=== PATIENT | female | born 1945 | race Caucasian/White ===

== ENCOUNTER 2017-12-11 06:08 | Observation (INO) | payer MEDICARE ==
[~2017-12-11 06:08] MED LIST: Buffered Lidocaine 0.9% SYRIN* 5 ML/SYR SYRINGE INTRADERM ONE; Dexamethasone IV* 4 MG/ML 1 ML (4 MG) IV SLOW PU ONE; Famotidine TAB* 20 MG PO ONE
[2017-12-11] MEDS ORDERED: ceFAZolin 2 GM PREMIX in ORs 2 GM/50 ML BAG IVPB ONE (06:15)
[2017-12-11] MEDS ORDERED: Famotidine IV* 10 MG/ML 2 ML (20 mg) ONE (06:15)
[2017-12-11] MEDS ORDERED: Dexamethasone IV* 4 MG/ML 1 ML (4 MG) ONE (06:15)
[2017-12-11] MEDS ORDERED: Thrombin 5,000 UNITS* 1 APPLIC KIT - topical use - TOPICAL ONE (06:48)
[2017-12-11] MEDS ORDERED: Lidocain 1% EPI 1:100,000 * 30 ML MDV ONE (06:48)
[2017-12-11] MEDS ORDERED: Bacitracin IV* 50,000 UNITS INJ ONE (06:48)
[2017-12-11] MEDS ORDERED: Famotidine TAB* 20 MG ONE (06:52)
[2017-12-11] MEDS ORDERED: Lidocaine 1% INJ* 10 MG/ML 30 ML SDV ONE (07:13)
[2017-12-11] MEDS ORDERED: Succinylcholine* 20 MG/ML 10 ML VIAL ONE (07:13)
[2017-12-11] MEDS ORDERED: Rocuronium* 10 MG/ML VIAL ONE (07:14)
[2017-12-11] MEDS ORDERED: fentaNYL* 50 MCG/ML 2 ML VIAL (100 MCG VIAL) ONE (07:16)
[2017-12-11] MEDS ORDERED: fentaNYL* 50 MCG/ML 2 ML VIAL (100 MCG VIAL) IV PRN (08:38)
[2017-12-11] MEDS ORDERED: Naloxone* 0.4 MG/ML 1 ML VIAL IV PRN (08:38)
[2017-12-11] MEDS ORDERED: Morphine VIAL* 10 MG/ML 1 ML VIAL ONE (10:04)
[2017-12-11] MEDS ORDERED: Acetaminophen TAB* 325 MG ONE (10:50)
[2017-12-11] MEDS: Acetaminophen TAB* 325 MG PO PRN ×2 (10:51→14:54)
[2017-12-11] MEDS: Omeprazole CAP* 20 MG PO SCH (14:53)
[2017-12-11] MEDS: Levothyroxine TAB* 75 MCG TAB PO SCH (14:53)
[2017-12-11] MEDS: Aspirin EC TAB* 81 MG TAB.EC PO SCH (14:53)
[2017-12-11] MEDS: Citalopram TAB* 10 MG PO SCH (14:53)
[2017-12-11] MEDS: Lisinopril TAB* 10 MG PO SCH (14:53)
[2017-12-11] MEDS: CMC:Pravastatin (NF) 20 MG TAB PO SCH (14:56)
[2017-12-11] MEDS ORDERED: Amitriptyline TAB* 25 MG PO SCH (21:00)
[2017-12-12] MEDS: Acetaminophen TAB* 325 MG PO PRN (04:35)
--- NOTE | 2017-12-12 07:40 | PN ---
Progress Note - Progress Note Date of Service: 12/12/17 SOAP: Subjective: [S/p thoracolumbar stimulator removal, POD #1. Reports minimal pain. Has been up out of bed ambulating with assistance of a walker. Denies lower extremity or thoracic pain and tingling. Mild headache improved with tylenol. ] Objective: [ Vital Signs: Temp Pulse Resp BP Pulse Ox 98.9 F 65 16 128/52 99 12/12/17 03:55 12/12/17 03:55 12/12/17 03:55 12/12/17 03:55 12/12/17 03:55 General: Alert and sitting up in chair, NAD. Neuro: Motor and sensory intact. Incision: Intact and dressing in place. No swelling. Assessment: [Satisfactory post-op course. ] Plan: [1. Discharge home. 2. Discharge instructions discussed. ]
[2017-12-12] MEDS ORDERED: Hydrochlorothiazide TAB* 25 MG PO SCH (09:00)
[2017-12-12] MEDS: Aspirin EC TAB* 81 MG TAB.EC PO SCH (09:35)
[2017-12-12] MEDS: Levothyroxine TAB* 75 MCG TAB PO SCH (09:36)
[2017-12-12] MEDS: Lisinopril TAB* 10 MG PO SCH (09:36)
[2017-12-12] MEDS: Omeprazole CAP* 20 MG PO SCH (09:37)
[2017-12-12] MEDS: Citalopram TAB* 10 MG PO SCH (09:37)
[2017-12-12] MEDS: CMC:Pravastatin (NF) 20 MG TAB PO SCH (09:37)
[2017-12-12 15:47] VITALS: BP 117/49
--- NOTE | 2017-12-14 12:36 | OP ---
OPERATIVE REPORT: DATE OF OPERATION: 12/11/17 DATE OF : 41 SURGEON: Antoine William MD HARD CANDY BATCH MIXER: FLAVIO Null. ANESTHESIA: General. PRE-OP DIAGNOSIS: Malfunctioning dorsal column stimulator. POST-OP DIAGNOSIS: Malfunctioning dorsal column stimulator OPERATIVE PROCEDURE: Removal of dorsal column stimulator generator and thoracic epidural paddle. DESCRIPTION OF PROCEDURE: This patient presented to the outpatient clinic though with an implanted d orsal column stimulator that has not enabled her to receive any pain relief. Due to recent shoulder issues, she was advised to consider removal of her stimulator since it was not really helping her and was precluding her from getting an MRI scan. She presented at this time for elective surgical remov al of her dorsal column stimulator. After satisfactory general anesthesia was obtained, the patient was placed on the operating room in prone position with the chest supported on the Alfredo frame and t he back slightly flexed. The right iliac crest region was clipped, prepped and draped in a sterile m serge for removal of her [employer] dorsal column stimulator generator. The mid thoracic vivi on was also clipped, prepped and draped in a sterile manner for removal of her epidural paddle. Both of these incisions were infiltrated with 1% Xylocaine with epinephrine after which the initial step was removal of the generator. The opening was made along her previous scar and the generator immedia tely visualized. The generator was dissected free as were its wires and the leads were cut with the generator removed. The wound was then thoroughly irrigated and antibiotic sponge placed over the poc ket. Attention was then directed to the thoracic region where the most superior of 2 thoracic scars was opened. This was opened down through scar tissue down to the thoracic fascia. The generator wir es and connectors were identified and were traced down to the epidural space. This required some rem oval of thoracic lamina. Once the wires had been traced down to the epidural space, the paddle elect rode was removed without difficulty with all of the connections and wires removed as well. The wound was then thoroughly irrigated after which the fascia was reapproximated with 0-Vicryl suture. The s ubcutaneous tissue was closed with 3-0 Vicryl suture and the skin closed with skin clips. The subcut aneous pocket where the generator band was irrigated and closed the with 3-0 Vicryl for the subcutane ous tissues and anirudh for the skin. The estimated blood loss was less than 50 cc and final sponge, padding, and needle counts were correct. The patient was taken to the recovery room, extubated and in stable condition. [id number]/[facility] #: [id number]
== END 2017-12-12 16:54 | disposition home or self-care (01) ==
LOC: OR 06:08 → SSU 12:46
PROVIDERS: ADMIT Neurological Surgery; ATTEND Neurological Surgery
DX: T85.615A Breakdown (mechanical) of other nervous system device, implant or graft, initial encounter (principal); I10 Essential (primary) hypertension; E78.5 Hyperlipidemia, unspecified; M19.90 Unspecified osteoarthritis, unspecified site; K57.92 Diverticulitis of intestine, part unspecified, without perforation or abscess without bleeding; E07.9 Disorder of thyroid, unspecified; D64.9 Anemia, unspecified; F32.9 Major depressive disorder, single episode, unspecified; F41.9 Anxiety disorder, unspecified; K52.9 Noninfective gastroenteritis and colitis, unspecified; M96.1 Postlaminectomy syndrome, not elsewhere classified
CPT/HCPCS: 88300; 96374; 96375; A9270-GY; G0378; J0330; J0690; J1100; J2270; J3010

== ENCOUNTER 2018-06-12 05:30 | Inpatient (IN) | payer MEDICARE ==
--- NOTE | 2018-05-30 15:18 | HP ---
PREOPERATIVE HISTORY AND PHYSICAL: DATE OF ADMISSION: 06/12/18 DATE OF SURGERY: 06/12/18 ATTENDING PROVIDER: Eric Laguerre MD * (DICTATED BY FLAVIO MONROE) PROCEDURE: Left total shoulder reverse. CHIEF COMPLAINT: Left shoulder pain. HISTORY OF PRESENT ILLNESS: Violette is a 72-year-old female who presents to the clinic after a fall over her left shoulder due to a full-thickness rotator cuff tear. She has failed conservative measures and therefore agreed to undergo a left total shoulder reverse with Dr. Laguerre on 06/12/18. PAST MEDICAL HISTORY: 1. Hypertension. 2. High cholesterol. 3. Osteoarthritis. 4. Colitis. 5. Diverticulitis. 6. Hypothyroidism. 7. Depression. 8. Anxiety. 9. Diabetes that is diet controlled. 10. Obesity. 11. Spinal stenosis. 12. Urinary incontinence. PAST SURGICAL HISTORY: 1. Hysterectomy. 2. Back surgery x4. 3. Spinal cord stimulator and removal. 4. Cholecystectomy. 5. Bowel resection. 6. Hernia x3. 7. Knee replacement. The patient denies prior complications with anesthesia. MEDICATIONS: 1. Benazepril HCl/hydrochlorothiazide 20/25 mg 1 by mouth daily. 2. Levothyroxine 75 mcg 1 daily. 3. Pravastatin 20 mg 1 daily. 4. Venlafaxine 75 mg 1 daily. 5. Vitamin 2 by mouth everyday. 6. Aspirin 81 mg 1 daily. 7. Nexium 20 mg 1 daily. 8. Amitriptyline 25 mg 1 nightly. 9. Fluoxetine 10 mg 2 by mouth everyday. 10. Levothyroxine sodium 75 mcg 1 by mouth daily. ALLERGIES: MORPHINE and DILAUDID. FAMILY HISTORY: Positive for CVA in her father. Denies family history of DVT or PE. SOCIAL HISTORY: She lives with her sister and nephew. She is retired. She is a former smoker, quit 20 years ago. She reports occasional alcohol. She is right- hand dominant. REVIEW OF SYSTEMS: A 14-point review of systems was reviewed with the patient. Positive for current fall on Sunday with some bruising on her face and current complaint, otherwise negative. Denies fever, chills, chest pain, shortness of breath, history of bleeding disorder, history of DVT or PE. PHYSICAL EXAMINATION GENERAL: A 72-year-old, well-developed, well-nourished female, in no acute distress. VITAL SIGNS: Height 63, weight 221, pulse 90, temperature 97.4, BMI 39.1. HEENT: Normocephalic, atraumatic. PERRLA. Throat: Clear. NECK: Supple. PULMONARY: Lungs are clear to auscultation bilaterally. No wheezing, rhonchi, or rales. CARDIO: Regular rate and rhythm. S1, S2. No murmurs, gallops, or rubs. No edema. ABDOMEN: Positive bowel sounds, soft, nontender. NEURO: Alert and oriented x3. Cranial nerves grossly intact. MUSCULOSKELETAL: Left upper extremity, skin is intact. No warmth or erythema. Forward flexion 180, abduction 75, external rotation to 40. Full range of motion over the wrist and hand. +2 radial pulse. +4/5 strength with rotator cuff testing obtained. Positive impingement, [place], [place], [place]. Sensation intact to light touch distally. DIAGNOSTIC STUDIES: CT and MRI of the left shoulder revealed a complete tear of the supraspinatus tendon with retraction as well as glenohumeral joint osteoarthritis. IMPRESSION: Left shoulder rotator cuff tear and glenohumeral joint osteoarthritis. PLAN: The patient is scheduled to undergo a left total shoulder reverse with Dr. Laguerre on 06/12/18. Percocet will be used for postop pain management and the patient has an appointment with her PCP later today for preop clearance. She will follow up 10 to 14 days postop for followup and suture removal. FLAVIO MONROE [id number]/[facility] #: [id number] MTDD
[~2018-06-12 05:30] MED LIST changes: -Buffered Lidocaine 0.9% SYRIN* 5 ML/SYR SYRINGE INTRADERM ONE; +Buffered Lidocaine 1% SYRIN* 1 ML/SYRINGE INTRADERM ONE; -Dexamethasone IV* 4 MG/ML 1 ML (4 MG) IV SLOW PU ONE; -Famotidine TAB* 20 MG PO ONE
--- OUTSIDE RECORDS SUMMARY | 2018-06-12 05:33 | XMS REPORT | Continuity of Care Document ---
:1945 External Reference #:[id number] Author Name Renetta Israel Care Team Providers Name Role Phone Mel Garland MD Primary Care Physician Unavailable Payers Date Identification Numbers Payment Provider Subscriber Policy Number: [id number] Medicare Violette Shelton PayID: [id number] [address] [place] [address] Expires: 2017 Policy Number: [id number] Medicare Violette Shelton PayID: [id number] [address] [place] [address] Policy Number: [id number] [facility] Violette Shelton PayID: [id number] [address] [place] [address] Advance Directives Description No Information Available Problems Date Description Provider Status Onset: 10/16/2017 Localized, primary osteoarthritis of the Eric Laguerre MD Active shoulder region Onset: 10/16/2017 Strain of muscle(s) and tendon(s) of the Eric Laguerre MD Active rotator cuff of left shoulder, subsequent encounter Onset: 11/26/2017 Lumbar post-laminectomy syndrome Antoine William M.D. Active Onset: 08/20/2017 Shoulder joint pain Misa Alvarado MD Active Onset: 12/21/2017 Convalescence after surgery Antoine William M.D. Active Onset: 01/09/2018 Neck pain Antoine William M.D. Active Family History Date Family Member(s) Observation Comments General Heart Disease General No Current Problems General Hypertension General Stroke Father Heart Disease Father Hypertension Father Stroke Father No Current Problems Social History Type Date Description Comments Sex Unknown Marital Status Single Marital Status Single Lives With Sister Lives With Sister Occupation Retired Occupation Retired Tobacco Use Start: Unknown End: Former Cigarette Smoker 1/2 Unknown Pack Daily Tobacco Use Start: Unknown Never Smoked Cigarettes Smoking Status Reviewed: 05/30/18 Never Smoked Cigarettes ETOH Use Drinks Alcoholic Beverages Rarely ETOH Use Denies alcohol use Tobacco Use Start: Unknown End: Patient is a former smoker Unknown Recreational Drug Use Denies Drug Use Recreational Drug Use Denies Drug Use Exercise Type/Frequency Exercises regularly Exercise Type/Frequency Exercises sporadically Exercise Type/Frequency Yoga Allergies, Adverse Reactions, Alerts Date Description Reaction Status Severity Comments 12/22/2016 Morphine and Related Active 08/20/2017 Morphine Active Severe 12/22/2016 Dilaudid Active 08/20/2017 Dilaudid Active Severe Medications Medication Date Status Form Strength Qnty SIG Indications Ordering Provider Benazepril Active Tablets 20-25mg 1 tab po Unknown HCL/Hydrochlorot 000 daily hiazide Levothyroxine Active Tablets 75mcg 1 tab po Unknown Sodium 000 daily Pravastatin Active Tablets 20mg 1 tab po Unknown Sodium 000 daily Venlafaxine HCL Active Caps ER 75mg 1 cap po Unknown ER 000 24HR daily Eye Vitamins Active Capsules 2 by Unknown 000 mouth every day Aspirin Adult [address] 81mg 1 by Unknown Low Dose 000 mouth every day Nexium 0 Active Capsules 20mg [address] mouth every day Amitriptyline Active Tablets 25mg 1 tab by Unknown HCL 000 mouth nightly Fluoxetine HCL 0 Active Tablets 10mg 2 by Unknown 000 mouth every day Levothyroxine 0 Active Tablets 75mcg one tab Unknown Sodium 000 daily PO Benazepril 0 Active Tablets 20-25mg one tab Unknown HCL/Hydrochlorot 000 daily po hiazide Pravastatin 0 Active Tablets 20mg one tab Unknown Sodium 000 daily po Nexium 0 Active Capsules 20mg one tab Unknown [address] DR daily po Aspir-[address] 81mg daily Unknown 000 Amitriptyline 0 Active Tablets 25mg Unknown HCL 000 Medications Administered in Office Medication Date Status Form Strength Qnty SIG Indications Ordering Provider Triamcinolone 03/21/ Administered Injection Zaneb (Kenalog) 2018 MD Shade Triamcinolone 11/02/ Administered Injection Zaneb (Kenalog) 2017 MD Shade Celestone 3 mg 12/22/ Administered Injection Allan M and 3mg 2016 MD Arthur Celestone 3 mg 12/22/ Administered Injection Allan M and 3mg 2016 MD Arthur Celestone 3 mg 12/22/ Administered Injection Allan M and 3mg 2016 MD Arthur Immunizations Description No Information Available Vital Signs Date Vital Result Comment 05/30/2018 8:46am Height 63 inches 5'3" Weight 221.00 lb Heart Rate 90 /min Body Temperature 97.4 F O2 % BldC Oximetry 98 % BMI (Body Mass Index) 39.1 kg/m2 03/21/2018 2:06pm Height 63 inches 5'3" Weight 225.00 lb Heart Rate 91 /min Body Temperature 98.8 F Pain Level 5 O2 % BldC Oximetry 99 % BMI (Body Mass Index) 39.9 kg/m2 01/23/2018 1:16pm Height 64 inches 5'4" Weight 218.00 lb BP Systolic Sitting 180 mmHg BP Diastolic Sitting 80 mmHg Pain Level 5 BMI (Body Mass Index) 37.4 kg/m2 01/09/2018 3:10pm Height 64 inches 5'4" Weight 218.00 lb BP Systolic Sitting 160 mmHg BP Diastolic Sitting 88 mmHg Pain Level 10 BMI (Body Mass Index) 37.4 kg/m2 01/03/2018 8:02am Heart Rate 84 /min BP Systolic 144 mmHg BP Diastolic 88 mmHg Respiratory Rate 16 /min Pain Level 3 12/21/2017 8:46am Height 64 inches 5'4" Weight 218.00 lb BP Systolic Sitting 140 mmHg BP Diastolic Sitting 60 mmHg Pain Level 2 BMI (Body Mass Index) 37.4 kg/m2 11/26/2017 9:19am Height 64 inches 5'4" Weight 218.50 lb Heart Rate 73 /min BP Systolic Sitting 150 mmHg large adult cuff right arm BP Diastolic Sitting 82 mmHg large adult cuff right arm Body Temperature 97.0 F O2 % BldC Oximetry 97 % at rest on room air BMI (Body Mass Index) 37.5 kg/m2 11/02/2017 10:44am Height 64 inches 5'4" Heart Rate 72 /min BP Systolic 126 mmHg BP Diastolic 82 mmHg Body Temperature 98.2 F Pain Level 0 10/16/2017 8:00am Height 64 inches 5'4" Weight 220.00 lb BP Systolic 128 mmHg BP Diastolic 78 mmHg Respiratory Rate 20 /min Body Temperature 97.8 F Pain Level 8 BMI (Body Mass Index) 37.8 kg/m2 08/20/2017 11:25am Height 63 inches 5'3" Weight 223.00 lb Heart Rate 72 /min BP Systolic 118 mmHg BP Diastolic 82 mmHg BMI (Body Mass Index) 39.5 kg/m2 12/22/2016 9:47am Height 63 inches 5'3" Weight 212.00 lb Heart Rate 74 /min BP Systolic Sitting 124 mmHg BP Diastolic Sitting 68 mmHg Respiratory Rate 16 /min Pain Level 9 BMI (Body Mass Index) 37.6 kg/m2 Results Test Date Facility Test Result H/L Range Note Laboratory test 12/11/2017 [facility] Point of Care 138 mg/dL High 70-[address] [place] [address] [phone] CBC No Diff 12/04/2017 [facility] White Blood 9.5 10^3/uL N 3.5-10.[address] [place] [address] [phone] Red Blood Count 4.50 10^6/uL N 4.00-5.40 Hemoglobin 12.2 g/dL N 12.0-16.0 Hematocrit 37 % N 35-47 Mean Corpuscular Volume 83 fL N 80-97 Mean Corpuscular Hemoglobin 27 pg N 27-31 Mean Corpuscular HGB Conc 33 g/dL N 31-36 Red Cell Distribution Width 15 % N 10.5-15 Platelet Count 279 10^3/uL N 150-450 Mean Platelet Volume 7.7 um3 N 7.4-10.4 Basic Metabolic Panel 12/04/2017 [facility] Sodium 141 mmol/L N 135-[address] [place] [address] [phone] Potassium 4.3 mmol/L N 3.5-5.0 Chloride 105 mmol/L N 101-111 Co2 Carbon Dioxide 29 mmol/L N 22-32 Anion Gap 7 mmol/L N 2-11 Glucose 114 mg/dL High 70-100 Blood Urea Nitrogen 32 mg/dL High 6-24 Creatinine 1.07 mg/dL High 0.51-0.95 BUN/Creatinine Ratio 29.9 High 8-20 Calcium 9.8 mg/dL N 8.6-10.3 Egfr Non- 50.1 >60 Egfr 60.7 >60 2 Laboratory test 12/04/2017 [facility] TSH (Thyroid 1.17 mcIU/mL N 0.34-5.[address] Stim Horm) [place] [address] [phone] 1 Panel Saw Operator: [id number] 2 Because ethnic data is not always readily available, this report includes an eGFR for both -Americans and non- Americans. The National Kidney Disease Education Program (NKDEP) does not endorse the use of the MDRD equation for patients that are not between the ages of 18 and 70, are , have extremes of body size, muscle mass, or nutritional status, or are non- or non-. According to the National Kidney Foundation, irrespective of diagnosis, the stage of the disease is based on the level of kidney function: Stage Description GFR(mL/min/1.73 m(2)) 1 Kidney damage with normal or decreased GFR 90 2 Kidney damage with mild decrease in GFR 60-89 3 Moderate decrease in GFR 30-59 4 Severe decrease in GFR 15-29 5 Kidney failure <15 (or dialysis) Procedures Date Code Description Status 03/21/2018 Inject/Drain Joint/Bursa Major W/O US Completed 12/11/2017 54288 Revision Or Removal Implant Neurostimulator Pulse Completed Generator/Recei 12/11/2017 60207 Removal Spinal Neurostimulator Electrode Plate/Paddle Via Completed Laminot 12/11/2017 53993 Removal Spinal Neurostimulator Electrode Plate/Paddle Via Completed Laminot 12/04/2017 17212 EKG, Interpretation Only Completed 11/02/201727835 Inject/Drain Joint/Bursa Major W/O US Completed 12/22/2016 29627 Rad Exam; Hand Comp Completed 12/22/201624633 Inject Tendon Sheath Or Ligament Aponeurosis Eg Plantar Completed Fascia 12/22/201627272 Inject Tendon Sheath Or Ligament Aponeurosis Eg Plantar Completed Fascia 12/22/201625567 Inject Tendon Sheath Or Ligament Aponeurosis Eg Plantar Completed Fascia Encounters Type Date Location Provider Dx Diagnosis Office Visit 01/23/2018 Neurosurgery Antoine Waldo, M54.2 Cervicalgia 1:20p Services [facility] Office Visit 01/09/2018 Neurosurgery Antoine William M54.2 Cervicalgia 3:20p Services [facility] Office Visit 01/03/2018 Orthopedic Services Eric Laguerre, M19.012 Primary 8:00a Of [facility] [place] osteoarthritis, left shoulder S46.012D Strain of musc/tend the rotator cuff of left shoulder, subs Office Visit 11/26/2017 Neurosurgery Antoine M96.1 Postlaminectomy 9:10a Services Of [facility] William M.D. syndrome, not elsewhere classified Office Visit 11/02/2017 Orthopedic Eric Laguerre, M19.012 Primary 10:45a Services Of osteoarthritis, left C.M.A. shoulder S46.012D Strain of musc/tend the rotator cuff of left shoulder, subs Office Visit 10/16/2017 Orthopedic Eric Laguerre, M19.012 Primary 8:00a Services Of osteoarthritis, left C.M.A. shoulder S46.012D Strain of musc/tend the rotator cuff of left shoulder, subs S46.012A Strain of musc/tend the rotator cuff of left shoulder, init W19.xxxA Unspecified fall, initial encounter Office Visit 08/20/2017 10:30a Sports Medicine Misa Alvarado MD M25.512 Pain in left Of [facility] AT shoulder [place] W17.81xA Fall down embankment ([place]), initial encounter Office Visit 12/22/2016 9:30a Orthopedic Allan M M65.311 Trigger thumb, Services Of [facility] AT MD Arthur right thumb [place] M65.331 Trigger finger, right middle finger M65.341 Trigger finger, right ring finger M79.641 Pain in right hand Office Visit 09/06/2015 [facility] Raoul K55.9 Vascular disorder 10:10a Assoc,vic Irene M.D. of intestine, Hospitalists unspecified E78.5 Hyperlipidemia, unspecified A41.9 Sepsis, unspecified organism I10 Essential (primary) hypertension Office Visit 09/05/2015 [facility] Kristen Blas K55.9 Vascular disorder 10:09a Assocvic M.D. of intestine, Hospitalists unspecified E78.5 Hyperlipidemia, unspecified A41.9 Sepsis, unspecified organism I10 Essential (primary) hypertension Office Visit 09/04/2015 [facility] Gen K55.9 Vascular disorder 10:09a Asslakia,vic Grace N.Darcy. of [facility], Hospitalists unspecified E78.5 Hyperlipidemia, unspecified I10 Essential (primary) hypertension Plan of Treatment Future Appointment(s):06/21/2018 10:15 am - Eric Laguerre MD at [facility].06/12/2018 7:30 am - Norma Lombardo PA-C at [facility].06/12/2018 7:30 am - Eric Laguerre MD at [facility].05/30/2018 - Eric Laguerre, MDM19.012 Primary osteoarthritis, left shoulderFollow up:Follow up: 10-14 days post opS46.012D Strain of muscle(s) and tendon(s) of the rotator cuff of lef
--- OUTSIDE RECORDS SUMMARY | 2018-06-12 05:33 | XMS REPORT | Continuity of Care Document ---
:1945 External Reference #:[id number] Author Name Norma Lombardo PA-C Address [address] [facility], [place] [address] Care Team Providers Name Role Phone Mel Garland MD Primary Care Physician Unavailable Payers Date Identification Numbers Payment Provider Subscriber Policy Number: [id number] Medicare Violette Shelton PayID: [id number] [address] [place] [address] Expires: 2017 Policy Number: [id number] Medicare Violette Shelton PayID: [id number] [address] [place] [address] Policy Number: [id number] [facility] Violette Shelton PayID: [id number] [address] [place] [address] Advance Directives Description No Information Available Problems [...] Unknown 000 mouth every day Aspirin Adult Active Tablets DR 81mg 1 by Unknown Low Dose 000 mouth every day Nexium 0 Active Capsules 20mg [address] mouth every day Amitriptyline Active Tablets 25mg 1 tab by Unknown HCL 000 mouth nightly Fluoxetine HCL Active Tablets 10mg 2 by Unknown 000 [...] Tablets DR 81mg daily Unknown 000 Amitriptyline Active Tablets 25mg Unknown HCL 000 Medications [...] Date Facility Test Result H/L Range Note Urinalysis Profile 05/30/2018 [facility] Urine Color Yellow [address] [place] [address] [phone] Urine Appearance Clear Urine Specific Sherwood 1.021 N 1.010-1.030 Urine pH 5.0 N 5-9 Urine Urobilinogen Negative Negative Urine Ketones Negative Negative Urine Protein Negative Negative Urine Leukocytes Trace Abnormal Negative Urine Blood Negative Negative * * Abnormal Negative 1 Urine Nitrite Negative Negative Urine Bilirubin Negative Negative Urine Glucose Negative Negative Urine White Blood Cell 2+(11-20/hpf) Abnormal Absent Urine Red Blood Cell Absent Absent Urine Bacteria Absent Absent Urine Squamous Epithelial Cell Present Abnormal Absent CBC Auto 05/30/2018 [facility] White Blood 11.5 10^3/uL High 3.5-10.[address] [place] [address] [phone] Red Blood Count 4.60 10^6/uL N 3.70-4.87 Hemoglobin 12.3 g/dL N 12.0-16.0 Hematocrit 38 % N 33-41 Mean Corpuscular Volume 83 fL N 80-97 Mean Corpuscular Hemoglobin 27 pg N 27-31 Mean Corpuscular HGB Conc 32 g/dL N 31-36 Red Cell Distribution Width 15 % N 10.5-15 Platelet Count 334 10^3/uL N 150-450 Mean Platelet Volume 8.0 fL N 7.4-10.4 Abs Neutrophils 8.3 10^3/uL High 1.5-7.7 Abs Lymphocytes 2.3 10^3/uL N 1.0-4.8 Abs Monocytes 0.7 10^3/uL N 0-0.8 Abs Eosinophils 0.2 10^3/uL N 0-0.6 Abs Basophils 0 10^3/uL N 0-0.2 Abs Nucleated RBC 0 10^3/uL Granulocyte % 72.2 % Lymphocyte % 19.9 % Monocyte % 5.8 % Eosinophil % 1.7 % Basophil % 0.4 % Nucleated Red Blood Cells % 0 Inr/Protime 05/30/2018 [facility] Inr 0.95 N 0.77-1.[address] [place] [address] [phone] Laboratory test 05/30/2018 [facility] Partial 24.8 Low 26.0- 36.[address] [address] PTT [phone] Basic Metabolic 05/30/2018 [facility] Sodium 141 mmol/L N 135- [address] [place] [address] [phone] Potassium 4.4 mmol/L N 3.5-5.0 Chloride 103 mmol/L N 101-111 Co2 Carbon Dioxide 29 mmol/L N 22-32 Anion Gap 9 mmol/L N 2-11 Glucose 134 mg/dL High 70-100 Blood Urea Nitrogen 32 mg/dL High 6-24 Creatinine 1.21 mg/dL High 0.51-0.95 BUN/Creatinine Ratio 26.4 High 8-20 Calcium 9.9 mg/dL N 8.6-10.3 Egfr Non- 43.5 >60 Egfr 52.6 >60 2 Laboratory test 05/30/2018 [facility] TSH (Thyroid 4.41 mcIU/mL N 0.34-5.[address] Stim Horm) [place] [address] [phone] Free T4 (Free Thyroxine) 1.17 ng/dL High 0.61-1.12 Type & Screen 05/30/2018 [facility] Patient Blood Type A Positive [address] [place] [address] [phone] Antibody Screen NEGATIVE Laboratory test 12/11/2017 [facility] Point of 138 mg/dL High 70-100 3 finding [address] [facility] [place] [address] [phone] CBC No Diff 12/04/2017 [facility] White Blood 9.5 N 3.5-10.[address] Count 10^3/[place] [address] [phone] Red Blood Count 4.50 10^6/uL N 4.00-5.40 [...] um3 N 7.4-10.4 Basic Metabolic Panel 12/04/2017 [facility] Sodium 141 mmol/L N 135-145 [address] [place] [address] [phone] Potassium 4.3 mmol/L N 3.5-5.0 Chloride 105 mmol/L N 101-111 Co2 Carbon Dioxide 29 mmol/L N 22-32 Anion Gap 7 mmol/L N 2-11 Glucose 114 mg/dL High 70-100 Blood Urea Nitrogen 32 mg/dL High 6-24 Creatinine 1.07 mg/dL High 0.51-0.95 BUN/Creatinine Ratio 29.9 High 8-20 Calcium 9.8 mg/dL N 8.6-10.3 Egfr Non- 50.1 >60 Egfr 60.7 >60 4 Laboratory test 12/04/2017 [facility] TSH (Thyroid 1.17 mcIU/mL N 0.34-5.[address] Stim Horm) [place] [address] [phone] 1 *Ascorbic acid is present which may interfere with detection of blood. 2 Because ethnic data is not always [...] 15-29 5 Kidney failure <15 (or dialysis) 3 Softball Coach: [id number] 4 Because ethnic data is not always readily [...] Inject/Drain Joint/Bursa Major W/O US Completed 12/11/2017 15616 Revision Or Removal Implant Neurostimulator Pulse Completed Generator/Recei 12/11/2017 22660 Removal Spinal Neurostimulator Electrode Plate/Paddle Via Completed Laminot 12/11/2017 19033 Removal Spinal Neurostimulator Electrode Plate/Paddle Via Completed Laminot 12/04/2017 32025 EKG, Interpretation Only Completed 11/02/2017 Inject/Drain Joint/Bursa Major W/O US Completed 12/22/2016 86902 Rad Exam; Hand Comp Completed 12/22/201684971 Inject Tendon Sheath Or Ligament Aponeurosis Eg Plantar Completed Fascia 12/22/201642338 Inject Tendon Sheath Or Ligament Aponeurosis Eg Plantar Completed Fascia 12/22/201628258 Inject Tendon Sheath Or Ligament Aponeurosis Eg Plantar Completed Fascia Encounters Type Date Location Provider Dx Diagnosis Office Visit 01/23/2018 Neurosurgery Antoine William, M54.2 Cervicalgia 1:20p Services Of [facility] Office Visit 01/09/2018 Neurosurgery Antoine William M54.2 Cervicalgia 3:20p [facility] Office Visit 01/03/2018 [facility] Services Eric Laguerre M19.012 Primary 8:00a Of [facility] [place] osteoarthritis, left shoulder S46.012D Strain of musc/tend the rotator cuff of left shoulder, subs Office Visit 11/26/2017 Neurosurgery Antoine 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 shoulder S46.012D Strain of musc/tend the rotator cuff of left shoulder, subs Office Visit 10/16/2017 Orthopedic Eric Laguerre M19.012 Primary 8:00a Services Of osteoarthritis, left C.M.A. 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 of intestine, Hospitalists unspecified E78.5 Hyperlipidemia, unspecified A41.9 Sepsis, unspecified organism I10 Essential (primary) hypertension Office Visit 09/05/2015 [facility] Kristen Blas K55.9 Vascular disorder 10:09a Assocvic M.D. of intestine, Hospitalists unspecified E78.5 Hyperlipidemia, unspecified A41.9 Sepsis, unspecified organism I10 Essential (primary) hypertension Office Visit 09/04/2015 [facility] Gen K55.9 Vascular disorder 10:09a Assoc,vic Grace N.P. of intestine, Hospitalists unspecified E78.5 Hyperlipidemia, unspecified I10 Essential (primary) hypertension Plan of Treatment Future Appointment(s):06/21/2018 10:15 am - Eric Laguerre MD at [facility].06/12/2018 7:30 am - Norma Lombardo PA-C at [facility].06/12/2018 7:30 am - Eric Laguerre MD at [facility].05/30/2018 - Eric Laguerre, MDM19.012 Primary osteoarthritis, left shoulderFollow up:Follow up: 10-14 days post opS46.012D Strain of muscle(s) and tendon(s) of the rotator cuff of lef
--- OUTSIDE RECORDS SUMMARY | 2018-06-12 05:33 | XMS REPORT | Continuity of Care Document ---
:1945 External Reference #:[id number] Author Name Nikki Ball Care Team Providers Name Role Phone Mel Garland MD Primary Care Physician Unavailable Payers Date Identification Numbers Payment Provider Subscriber Policy Number: [id number] Medicare Violette Shelton PayID: [id number] [address] [place] [address] Expires: 2017 Policy Number: [id number] Medicare Violette Shelton PayID: [id number] [address] [place] [address] Policy Number: [id number] [facility] Violette Shelton PayID: [id number] [address] [place] [address] Advance Directives Description No Information Available Problems [...] Unknown Never Smoked Cigarettes Smoking Status Reviewed: 03/21/18 Never Smoked Cigarettes ETOH Use Drinks Alcoholic [...] tab po Unknown Sodium 000 daily Pravastatin 0 Active Tablets 20mg 1 tab po Unknown [...] Unknown 000 DR mouth every day Amitriptyline 0 Active Tablets 25mg 1 tab by Unknown [...] Available Vital Signs Date Vital Result Comment 03/21/2018 2:06pm Height 63 inches 5'3" Weight [...] Result H/L Range Note Laboratory test 12/11/2017 [facility] Point of Care 138 mg/dL High 70-[address] [place] [address] [phone] CBC No Diff 12/04/2017 [facility] White Blood 9.5 10^3/uL N 3.5-10.[address] [place] [address] [phone] Red Blood Count 4.50 10^6/uL N 4.00-5.40 [...] um3 N 7.4-10.4 Basic Metabolic Panel 12/04/2017 [facility] Sodium 141 mmol/L N 135-[address] [place] [address] [phone] Potassium 4.3 mmol/L N 3.5-5.0 Chloride 105 mmol/L N 101-111 Co2 Carbon Dioxide 29 mmol/L N 22-32 Anion Gap 7 mmol/L N 2-11 Glucose 114 mg/dL High 70-100 Blood Urea Nitrogen 32 mg/dL High 6-24 Creatinine 1.07 mg/dL High 0.51-0.95 BUN/Creatinine Ratio 29.9 High 8-20 Calcium 9.8 mg/dL N 8.6-10.3 Egfr Non- 50.1 >60 Egfr 60.7 >60 2 Laboratory test 12/04/2017 [facility] TSH (Thyroid 1.17 mcIU/mL N 0.34-5.[address] Stim Horm) [place] [address] [phone] 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 2 Because ethnic data is not always [...] Inject/Drain Joint/Bursa Major W/O US Completed 12/11/2017 15598 Revision Or Removal Implant Neurostimulator Pulse Completed Generator/Recei 12/11/2017 86107 Removal Spinal Neurostimulator Electrode Plate/Paddle Via Completed Laminot 12/11/2017 28967 Removal Spinal Neurostimulator Electrode Plate/Paddle Via Completed Laminot 12/04/2017 15594 EKG, Interpretation Only Completed 11/02/201786021 Inject/Drain Joint/Bursa Major W/O US Completed 12/22/2016 09520 Rad Exam; Hand Comp Completed 12/22/201679332 Inject Tendon Sheath Or Ligament Aponeurosis Eg Plantar Completed Fascia 12/22/201695630 Inject Tendon Sheath Or Ligament Aponeurosis Eg Plantar Completed Fascia 12/22/201685799 Inject Tendon Sheath Or Ligament Aponeurosis Eg Plantar Completed Fascia Encounters Type Date Location Provider Dx Diagnosis Office Visit 01/23/2018 Neurosurgery Alexandra Magallon.2 Cervicalgia 1:20p Services [facility] Office Visit 01/09/2018 Neurosurgery Alexandra Magallon.2 Cervicalgia 3:20p Services Of [facility] Office [...] MD Christiano M25.512 Pain in left Of [facility] AT shoulder Calvin W17.81xA Fall down embankment (downey), initial encounter Office Visit 12/22/2016 9:30a Orthopedic Allan M M65.311 Trigger thumb, 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 of intestine, Hospitalists unspecified E78.5 Hyperlipidemia, unspecified A41.9 Sepsis, unspecified organism I10 Essential (primary) hypertension Office Visit 09/05/2015 [facility] Kristen Blas K55.9 Vascular disorder 10:09a Assocvic M.D. of intestine, Hospitalists unspecified E78.5 Hyperlipidemia, unspecified A41.9 Sepsis, unspecified organism I10 Essential (primary) hypertension Office Visit 09/04/2015 [facility] Gen K55.9 Vascular disorder 10:09a Assoc,vic Grace N.P. of intestine, Hospitalists unspecified E78.5 Hyperlipidemia, unspecified I10 Essential (primary) hypertension Plan of Treatment Future Appointment(s):06/12/2018 7:30 am - Norma Lombardo PA-C at [facility].06/12/2018 7:30 am - Eric Laguerre MD at [facility].05/30/2018 9:00 am - Eric Laguerre MD at [facility].03/21/2018 - Eric Laguerre, MDM19.012 Primary osteoarthritis, left shoulderFollow up:Follow up: As needed Follow up: S46.012D Strain of muscle(s) and tendon(s) of the rotator cuff of lef
[2018-06-12] MEDS ORDERED: Famotidine IV* 10 MG/ML 2 ML (20 mg) IV ONE (06:00)
[2018-06-12] MEDS ORDERED: Lactated Ringers 1000 ML Bag* 1,000 ML IV SCH (06:00)
[2018-06-12] MEDS ORDERED: Buffered Lidocaine 1% SYRIN* 1 ML/SYRINGE INTRADERM ONE (06:11)
[2018-06-12] MEDS ORDERED: Famotidine IV* 10 MG/ML 2 ML (20 mg) ONE (06:11)
[2018-06-12] MEDS ORDERED: ceFAZolin 2 GM in NS PREMIX(*) 2 GM/100 ML BAG IVPB ONE (06:12)
[2018-06-12] MEDS ORDERED: Lidocaine 1%* 5 ML VIAL ONE (07:03)
[2018-06-12] MEDS ORDERED: ROPIVACAINE 5 MG/ML 30 ML BTL (0.5%) ONE (07:03)
[2018-06-12] MEDS ORDERED: fentaNYL* 50 MCG/ML 2 ML VIAL (100 MCG VIAL) ONE (07:25)
[2018-06-12] MEDS ORDERED: Midazolam* 1 MG/ML 5 ML VIAL (5 MG) ONE (07:25)
[2018-06-12] MEDS ORDERED: KETAMINE HCL* 50 MG/ML 10 ML VIAL ONE (07:58)
[2018-06-12] MEDS ORDERED: Phenylephrine 10 MG/ML VIAL* 1 ML VIAL ONE (08:23)
[2018-06-12] MEDS ORDERED: EPHEDrine (Pressors)* 50 MG/ML VIAL ONE (08:23)
[2018-06-12] MEDS ORDERED: Ondansetron INJ* 2 MG/ML VIAL ONE (08:23)
[2018-06-12] MEDS ORDERED: Ketorolac INJ* 30 MG/ML 1 ML VIAL ONE (08:23)
[2018-06-12] MEDS ORDERED: Dexamethasone IV* 4 MG/ML 1 ML (4 MG) ONE (08:23)
[2018-06-12] MEDS ORDERED: DiMENhydriNATE IV* 50 MG/ML VIAL ONE (08:23)
[2018-06-12] MEDS ORDERED: Lidocaine 2% PF * 5 ML VIAL ONE (08:23)
[2018-06-12] MEDS ORDERED: Succinylcholine* 20 MG/ML 10 ML VIAL ONE (08:23)
[2018-06-12] MEDS ORDERED: Propofol* 10 MG/ML 20 ML BTL ONE (08:23)
[2018-06-12] MEDS ORDERED: DiMENhydriNATE IV* 50 MG/ML VIAL IV PUSH PRN (09:14)
[2018-06-12] MEDS ORDERED: oxyCODONE TAB* 5 MG TAB PO PRN (09:14)
[2018-06-12] MEDS ORDERED: Acetaminophen IV 1GM/100ML * 1,000 MG/100 ML VIAL IVPB ONE (09:14)
[2018-06-12] MEDS ORDERED: Naloxone* 0.4 MG/ML 1 ML VIAL IV PRN (09:14)
[2018-06-12] MEDS ORDERED: Gabapentin CAP(*) 300 MG PO ONE (09:17)
[2018-06-12] MEDS ORDERED: Acetaminophen IV 1GM/100ML * 100 ML ONE (09:55)
[2018-06-12] MEDS ORDERED: HYDROmorphone INJ1* 1 MG/ML SYRINGE ONE ×2 (09:55→17:16)
[2018-06-12] MEDS ORDERED: Gabapentin CAP(*) 300 MG ONE (09:55)
[2018-06-12] MEDS ORDERED: Ondansetron INJ* 2 MG/ML VIAL IV PRN (09:56)
[2018-06-12] MEDS: HYDROmorphone INJ1* 1 MG/ML SYRINGE IV PRN ×5 (09:56→10:36)
[2018-06-12] MEDS ORDERED: diPHENhydraMINE IV* 50 MG/ML 1 ml VIAL (BENADRYL) IV PRN (09:56)
[2018-06-12] MEDS ORDERED: diPHENhydraMINE PO* 25 MG PO PRN (09:56)
[2018-06-12] MEDS ORDERED: Cyclobenzaprine TAB* 10 MG PO PRN (09:56)
[2018-06-12] MEDS ORDERED: Temazepam CAP* 15 MG PO PRN (09:56)
[2018-06-12] MEDS ORDERED: Polyethylene Glycol 3350* 17 GM PACKET PO PRN (09:56)
[2018-06-12] MEDS ORDERED: traMADol TAB* 50 MG PO PRN (09:56)
[2018-06-12] MEDS ORDERED: oxyCODONE/Acetamin 5/325 MG* TAB PO PRN (09:56)
[2018-06-12] MEDS ORDERED: Ondansetron ODT TAB* 4 MG PO PRN (09:56)
[2018-06-12] MEDS ORDERED: Magnesium Hydroxide LIQ* 30 ML UDC PO PRN (09:56)
[2018-06-12] MEDS ORDERED: Bisacodyl SUPP* 10 MG SUPP PR PRN (09:56)
[2018-06-12] MEDS: oxyCODONE TAB* 5 MG TAB PO PRN ×3 (10:13→20:50)
[2018-06-12] MEDS ORDERED: oxyCODONE TAB* 5 MG TAB ONE (10:13)
[2018-06-12] MEDS: oxyCODONE/Acetamin 5/325 MG* TAB PO PRN (13:31)
[2018-06-12] MEDS: Lactated Ringers 1000 ML Bag* 1,000 ML IV SCH ×2 (17:03→22:31)
[2018-06-12] MEDS: ceFAZolin 1 GM ADVAN(*) 1 GM in NS 0.9% 50 ML* 50 ML IVPB SCH (17:03)
[2018-06-12] MEDS ORDERED: Amitriptyline TAB* 25 MG PO SCH (18:00)
[2018-06-12] MEDS: Acetaminophen TAB* 325 MG PO SCH (18:06)
[2018-06-12] MEDS: Docusate CAP* 100 MG PO SCH (20:45)
[2018-06-12] MEDS: Amitriptyline TAB* 25 MG PO SCH (20:46)
--- NOTE | 2018-06-12 23:55 | OP ---
DATE OF OPERATION: 06/12/18 - ROOM #335 DATE OF : 41 SURGEON: Eric Laguerre MD. ASSISTANTS: 1. FLAVIO Clement. 2. Natividad Morocho. Assistants were needed for the entirety of the case to help with positioning, retraction, and utilized throughout all portions of the case. ANESTHESIOLOGIST: Dr. Roche. ANESTHESIA: General interscalene block. PRE-OP DIAGNOSIS: Left rotator cuff arthropathy. POST-OP DIAGNOSIS: Left rotator cuff arthropathy. OPERATIVE PROCEDURE: Left shoulder reverse arthroplasty with open biceps tenodesis. COMPLICATIONS: None. ESTIMATED BLOOD LOSS: 200. DRAINS: Output drains x1. IMPLANTS: AEQUALIS ASCEND FLEX size 5B stem with a centered reversed tray and a +6 poly. AEQUALIS REVERSED II size 35 x 25 with a 36 mm head. INDICATIONS: Violette Shelton is a 72-year-old female who sustained injury a year ago with her shoulder. She has failed conservative management and elected to proceed with surgical treatment. Risks and benefits of surgery were discussed at length including but not limited to bleeding, infection, damage to nerves; vessels; surrounding structures; wound nonhealing, persistent pain, need for surgery, scarring, stiffness, incomplete relief of symptoms, and risks of anesthesia. DESCRIPTION OF PROCEDURE: Patient was greeted in the preoperative area by the attending surgeon. Correct extremity was marked and consent was confirmed. Patient underwent interscalene nerve block by anesthesiologist, after which she was brought back to the operating suite. She was placed in the supine position on the operating table. She then underwent general anesthesia with endotracheal intubation. All bony prominences were padded. She was secured. She was placed in the lazy beach chair position with towels under her scapula. The left arm was prepped and draped in the usual sterile fashion beginning with chlorhexidine soap, scrub, and alcohol wipe and a final prep of ChloraPrep. After appropriate surgical pause indicating side, site, procedure, and administration of antibiotics, a 15-blade was used to make an incision along the deltopectoral interval. The soft tissues were carefully dissected to expose the deltopectoral interval. Cephalic vein was taken laterally with the deltoid and the pec was taken medially. The clavipectoral fascia was identified. There was significant scar tissue. Deltoid adhesions were carefully removed using the Farr as well as the curved Ortega. The CA ligament was released. There was evidence of full-thickness tears of the supra and infraspinatus tendons, but the subscap was intact. The pec was identified and the proximal 1.5 cm was released. The biceps was then tenodesed using heavy nonabsorbable suture and tenotomized proximal to that. This was followed into the joint itself. The subscap was then carefully released and all adhesions were removed. It was tagged with #5 Ethibond for later closure. The head was gently externally rotated and dislocated. There was evidence of grade 3 and 4 changes of the humeral head. The provisional neck cut was then marked using electrocautery device and then it was made using the sagittal saw. The bone quality was quite poor. The canal was prepared in the usual fashion with the starting canal guide, the sizing guide, and then broaching began. Size 5 was found to have a good fit. Again, the bone quality was poor. The protection plate was placed and attention was directed to the glenoid. The head was brought back into the wound and the posterior retractor was placed to expose the glenoid. The biceps was then removed along with superior, posterior and anterior labrum. The humeral neck guide was then placed with the subscap behind it. The inferior soft tissues were carefully released using electrocautery device with a Farr to protect the soft tissues and with care to stay on bone. There was some evidence of grade 3 and 4 changes to the glenoid; it was a small glenoid. The guide was then placed inferiorly in the glenoid and then the guidewire was then drilled with excellent purchase. The size 25 reamer was then used to ream the glenoid. The 36 stoner hand was then used to do a footprint reamer. Excess cartilage and debris was removed. At this point , the 8 mm cannulated drill bit was then drilled and 6.5 mm drill was drilled. This was measured to a depth of about 29 to 31 mm. The size 35 glenoid baseplate was chosen. The drill hole was tapped and then the final implant was brought to the field and placed with excellent purchase. Three interlocking screws were then placed at the appropriate length with good purchase. The glenosphere was then brought into the field and impacted into position and secured with set screws. Attention was then directed to the humeral head. The head was brought through the wound again. The broach was placed into the canal again to make sure it was appropriate fit. The trial was then placed in the centered tray and the +6 poly was placed. The shoulder was then reduced. The shrug test was done and there was appropriate amount of shrug. It was stable. The shoulder was able to be forward flexed to about 130, abduct to about 90, externally rotate to about 50 degrees. It was appropriately difficult to dislocate the shoulder. The final implants were then chosen. Transosseous tunnels were then placed through the humerus for later subscap closure. The final implants were prepared on the back table by the attending surgeon and then impacted into position on the field. The shoulder was then reduced and again taken through the same range of motion. The wounds were copiously irrigated with sterile saline. The subscap was then closed using the previously passed #5 Ethibond sutures in a horizontal mattress configuration. An intraarticular drain was then placed. The wound was irrigated again. The deltopectoral interval was closed with #2 Ethibond. The wound was irrigated again and the skin was closed in layers with 3-0 Monocryl. Sterile dressings were applied. Cryo/Cuff and a sling were applied. She was awoken from anesthesia and transferred to the PACU in stable condition. POSTOPERATIVE PLAN: She will be in a sling for 6 weeks and discharged on pain medication. She will be admitted for 24 hours for 24 hours of postoperative antibiotics. Drain will be discontinued on postop day 1. She will be on Lovenox in the hospital and discharged on nothing due to no previous personal or family history. I will see the patient back in 10 to 14 days in the office and we will follow her in the hospital. [id number]/CPS #: [id number] [facility]
[2018-06-13] MEDS: ceFAZolin 1 GM ADVAN(*) 1 GM in NS 0.9% 50 ML* 50 ML IVPB SCH ×2 (00:35→08:11)
[2018-06-13] MEDS: Acetaminophen TAB* 325 MG PO SCH ×3 (01:51→16:57)
[2018-06-13 05:57] LABS: Hematocrit 30 % (33-41); Hemoglobin 9.4 g/dL (12.0-16.0); Mean Platelet Volume 7.9 fL (7.4-10.4); Platelet Count 232 10^3/uL (150-450)
[2018-06-13] MEDS: Levothyroxine TAB* 75 MCG TAB PO SCH (06:03)
[2018-06-13 06:25] LABS: BUN/Creatinine Ratio 20.2 (8-20); Calcium 8.4 mg/dL (8.6-10.3); EGFR African American 51.2 (>60); EGFR Non-African American 42.3 (>60); Potassium 4.5 mmol/L (3.5-5.0)
[2018-06-13] MEDS: Lisinopril TAB* 10 MG PO SCH ×2 (08:11→09:45)
[2018-06-13] MEDS: Docusate CAP* 100 MG PO SCH ×2 (08:12→21:05)
[2018-06-13] MEDS: Citalopram TAB* 10 MG PO SCH (08:12)
[2018-06-13] MEDS: Atorvastatin* 10 MG TAB PO SCH (08:12)
[2018-06-13] MEDS: Hydrochlorothiazide TAB* 25 MG PO SCH ×2 (08:12→09:44)
[2018-06-13] MEDS: Pantoprazole TAB * 40 MG TAB PO SCH (08:15)
[2018-06-13] MEDS: oxyCODONE TAB* 5 MG TAB PO PRN ×2 (08:23→19:45)
--- NOTE | 2018-06-13 08:49 | PN ---
Progress Note - Progress Note Date of Service: 06/13/18 Note: Pt seen and examined She is doing well. Pain intense but working on control. Denies numbness or tingling. No SOB or CP Temp Pulse Resp BP Pulse Ox 98.4 F 83 16 95/37 91 06/13/18 03:21 06/13/18 03:21 06/13/18 08:23 06/13/18 03:21 06/13/18 03:21 NAD. dressing and sling in place. SILT grossly about 1st dws, index and long finger, and ulnar aspect of small finger. 2+ radial pulse. able to flex/ext digits Abnormal Lab Results 06/13/18 06/13/18 05:26 05:26 Hgb 9.4 L Hct 30 L Plt Count 232 MPV 7.9 Sodium 139 Potassium 4.5 Chloride 108 Carbon Dioxide 26 Anion Gap 5 BUN 25 H Creatinine 1.24 H Est GFR ( Amer) 51.2 Est GFR (Non-Af Amer) 42.3 BUN/Creatinine Ratio 20.2 H Glucose 167 H Calcium 8.4 L Xrays acceptable A/P 72 yo F POD #1 from L reverse NWB sling at all times except for exercises passive ROM of shoulder. active of elbow, wrist, and hand pain control post op abx drain to be d/c'd today dispo when meets criteria
--- NOTE | 2018-06-13 10:55 | DS ---
Orthopedic Discharge Summary - Discharge Summary Date of Admission:06/12/18 Date of Discharge: 06/17/18 Date of Surgery: 06/12/18 Attending Orthopedic Provider: [Dr Laguerre ] Pre-operative Diagnosis: left shoulder arthritis Operative Procedure: left total shoulder reverse Condition of Patient: stable History: TANESHA HUNTER is a 72 year old F with years of increasingly severe left shoulder pain. Patient has failed conservative management and has elected to undergo a left total shoulder reverse arthroplasty. Hospital Course: TANESHA was admitted to [facility] on 06/12/18. Patient underwent a [left total shoulder reverse arthroplasty] without complication followed by a brief recovery in PACU and transfer to the Short Stay Surgical Unit in stable condition. Our physical therapy and occupational therapy also participated in this patients care. Post-op day 1: patient was alert and in no acute distress. Dressing was clean, dry and intact. Operative extremity wrist and digit flexion and extension intact, sensation intact to light touch distally, Post-op day two: dressing was clean, dry and intact. 06/17 patient was deemed to be medically and orthopedically stable for discharge home. Physical therapy goals were met. Home Medications Medication Instructions Recorded Confirmed Type Amitriptyline TAB* [Elavil TAB*] 25 mg PO QPM 12/04/17 06/12/18 History Areds 1 tab PO BID 12/04/17 06/12/18 History Aspirin [Aspirin Childrens 81 MG] 81 mg PO QAM 12/04/17 06/12/18 History Citalopram TAB* [Celexa TAB*] 10 mg PO QAM 12/04/17 06/12/18 History Levothyroxine Sodium 75 mcg PO QAM 12/04/17 06/12/18 History Pravastatin Sodium 20 mg PO QAM 12/04/17 06/12/18 History Benazepril/Hydrochlorothiazide 1 tab PO QAM 05/30/18 06/12/18 History [Benazepril HCl/Hydrochlor 20-25 mg-] Esomeprazole(NF) [Nexium(NF)] 20 mg PO QAM 05/30/18 06/12/18 History Ibuprofen 400 mg PO Q6H PRN 05/30/18 06/12/18 History Acetaminophen TAB* [Tylenol TAB*] 975 mg PO Q8H tab 06/13/18 Rx Docusate CAP* [Colace Cap*] 100 mg PO BID #90 cap 06/13/18 Rx oxyCODONE/Acetamin 5/325 MG* 1 tab PO Q4H PRN #0 tab MDD 8 06/13/18 Rx [Percocet 5/325 TAB*] oxyCODONE/Acetamin 5/325 MG* 2 tab PO Q4H PRN #50 tab MDD 8 06/13/18 Rx [Percocet 5/325 TAB*] Discharge to [facility] in stable condition on 06/17/18 Orthopedic Total Shoulder Instruction Non-weight bearing for operative upper extremity. No active range of motion at the shoulder. Continue elbow, wrist, and hand pendulums shown by PT . Wound Care: OK to shower after third post- operative day, no bathing/ swimming / submerging wound. Use gentle soap, pat dry. Cover with gauze, JUJU wrap or tape. Pain control with: percocet 5/325 mg 1-2 tabs by mouth every 4-6 hours max of 8 per day. Please note that percocet contains tylenol (acetaminophen). Maximum daily dose of tylenol is 4000 mg from all sources. Diet: Regular diet, increase fluids and fiber to prevent constipation. Continue to use stool softeners, call office if no bowel motion within 48 hours. Call Orthopedic office for increased drainage, redness, increased pain, or fever. Go to ER with shortness of breath or chest pain. - Antibiotics required prior to any dental work Please call our office with any questions or concerns ([phone] Please make an appointment for follow up with Dr Laguerre in 10-14 days post op
[2018-06-13] MEDS ORDERED: NS 0.9% 500 ML* 500 ML IV SCH (11:00)
[2018-06-13] MEDS: oxyCODONE/Acetamin 5/325 MG* TAB PO PRN ×2 (12:14→16:56)
[2018-06-13] MEDS: Enoxaparin(*) 40 MG/0.4 ML SYR SUBCUT SCH (12:14)
[2018-06-13] MEDS: Amitriptyline TAB* 25 MG PO SCH (21:06)
[2018-06-14] MEDS: Acetaminophen TAB* 325 MG PO SCH ×3 (02:57→18:23)
[2018-06-14] MEDS: Levothyroxine TAB* 75 MCG TAB PO SCH (05:54)
[2018-06-14 06:43] LABS: Hematocrit 27 % (33-41); Hemoglobin 8.9 g/dL (12.0-16.0); Mean Platelet Volume 7.6 fL (7.4-10.4); Platelet Count 207 10^3/uL (150-450)
--- NOTE | 2018-06-14 07:57 | PN ---
Progress Note - Progress Note Date of Service: 06/14/18 Note: Pt seen and examined. Complains of confusion last night. arm pain this morning with occasional numbness and tingling in all digits except small finger. sitting in chair today. pain 7/10 Temp Pulse Resp BP Pulse Ox 99.4 F 85 18 141/46 90 06/14/18 00:20 06/14/18 03:43 06/14/18 03:43 06/14/18 03:43 06/14/18 03:43 NAD. AAOx3. pleasant mood, normal affect. LUE: dressing in place. able to flex/ ext digits. sensate grossly. brisk cap refill A/P 72 yo F s/p reverse struggled with PT/OT so likely dispo to SNF. bed pending analgesia. discussed she should work on ROM of elbow and hands. potentially will start NSAIDs also to help with pain management. dispo pending SNF
[2018-06-14] MEDS: Hydrochlorothiazide TAB* 25 MG PO SCH (09:17)
[2018-06-14] MEDS: Docusate CAP* 100 MG PO SCH ×2 (09:17→22:39)
[2018-06-14] MEDS: Lisinopril TAB* 10 MG PO SCH (09:17)
[2018-06-14] MEDS: Pantoprazole TAB * 40 MG TAB PO SCH (09:18)
[2018-06-14] MEDS: Atorvastatin* 10 MG TAB PO SCH (09:18)
[2018-06-14] MEDS: Citalopram TAB* 10 MG PO SCH (09:18)
--- NOTE | 2018-06-14 12:00 | PN ---
Progress Note - Progress Note Date of Service: 06/14/18 Note: Dressings changed left shoulder. Moderate old bloody drainage on dressings from where drain was removed. Incision is benign, dry, no erythema. New 4x4s and Tega Derm applied . She was offered a SNF bed however insurance not approved, therefore discharge on Sunday to rehab.
[2018-06-14] MEDS: Ibuprofen TAB* 600 MG PO PRN ×2 (12:25→22:39)
[2018-06-14] MEDS: Enoxaparin(*) 40 MG/0.4 ML SYR SUBCUT SCH (12:28)
[2018-06-14] MEDS: Amitriptyline TAB* 25 MG PO SCH (22:40)
[2018-06-15] MEDS: Acetaminophen TAB* 325 MG PO SCH ×3 (02:45→17:50)
[2018-06-15] MEDS: Levothyroxine TAB* 75 MCG TAB PO SCH (06:09)
[2018-06-15 06:43] LABS: Hematocrit 29 % (33-41); Hemoglobin 9.6 g/dL (12.0-16.0); Mean Platelet Volume 7.9 fL (7.4-10.4); Platelet Count 232 10^3/uL (150-450)
--- NOTE | 2018-06-15 07:07 | PN ---
Progress Note - Progress Note Date of Service: 06/15/18 SOAP: Subjective: OOB to chair with no complaints Objective: Vital Signs Temp Pulse Resp BP Pulse Ox 98.2 F 77 18 122/49 93 06/15/18 03:38 06/15/18 03:38 06/14/18 23:44 06/15/18 03:38 06/15/18 03:38 Laboratory Last Values Hgb 9.6 g/dL (12.0-16.0) L 06/15/18 06:12 Hct 29 % (33-41) L 06/15/18 06:12 Plt Count 232 10^3/uL (150-450) 06/15/18 06:12 MPV 7.9 fL (7.4-10.4) 06/15/18 06:12 Sodium 139 mmol/L (135-145) 06/13/18 05:26 Potassium 4.5 mmol/L (3.5-5.0) 06/13/18 05:26 Chloride 108 mmol/L (101-111) 06/13/18 05:26 Carbon Dioxide 26 mmol/L (22-32) 06/13/18 05:26 Anion Gap 5 mmol/L (2-11) 06/13/18 05:26 BUN 25 mg/dL (6-24) H 06/13/18 05:26 Creatinine 1.24 mg/dL (0.51-0.95) H 06/13/18 05:26 Est GFR ( Amer) 51.2 (>60) 06/13/18 05:26 Est GFR (Non-Af Amer) 42.3 (>60) 06/13/18 05:26 BUN/Creatinine Ratio 20.2 (8-20) H 06/13/18 05:26 Glucose 167 mg/dL (70-100) H 06/13/18 05:26 POC Glucose (mg/dL) 152 mg/dL (70-100) H 06/12/18 06:27 Calcium 8.4 mg/dL (8.6-10.3) L 06/13/18 05:26 incision: c/d PE: NVI; immobilizer in place Assessment: s/p left reverse shoulder Plan: 1) Lovenox for DVT prophylaxis 2) PT/OT- NWB RUE, PROM OK no FF or Abduction > 90, no ER > 25 3) awaiting rehab placement, will change dressing prior to DC to rehab; likely Sunday
[2018-06-15] MEDS: Ibuprofen TAB* 600 MG PO PRN ×2 (09:44→17:50)
[2018-06-15] MEDS: Lisinopril TAB* 10 MG PO SCH (09:45)
[2018-06-15] MEDS: Pantoprazole TAB * 40 MG TAB PO SCH (09:45)
[2018-06-15] MEDS: Hydrochlorothiazide TAB* 25 MG PO SCH (09:45)
[2018-06-15] MEDS: Docusate CAP* 100 MG PO SCH ×2 (09:45→21:51)
[2018-06-15] MEDS: Atorvastatin* 10 MG TAB PO SCH (09:45)
[2018-06-15] MEDS: Citalopram TAB* 10 MG PO SCH (09:45)
[2018-06-15] MEDS: Enoxaparin(*) 40 MG/0.4 ML SYR SUBCUT SCH (12:46)
[2018-06-15] MEDS: Amitriptyline TAB* 25 MG PO SCH (21:51)
[2018-06-16] MEDS: Acetaminophen TAB* 325 MG PO SCH ×3 (03:17→18:14)
[2018-06-16] MEDS: Levothyroxine TAB* 75 MCG TAB PO SCH (06:17)
[2018-06-16 06:21] LABS: Hematocrit 29 % (33-41); Hemoglobin 9.5 g/dL (12.0-16.0); Platelet Count 258 10^3/uL (150-450)
--- NOTE | 2018-06-16 08:28 | PN ---
Progress Note - Progress Note Date of Service: 06/16/18 SOAP: Subjective: OOB to chair resting comfortably with no complaints; moderate left shoulder pain Objective: Vital Signs Temp Pulse Resp BP Pulse Ox 98.7 F 74 16 114/54 98 06/16/18 03:12 06/16/18 03:12 06/16/18 08:00 06/16/18 03:12 06/16/18 03:12 Laboratory Last Values Hgb 9.5 g/dL (12.0-16.0) L 06/16/18 05:53 Hct 29 % (33-41) L 06/16/18 05:53 Plt Count 258 10^3/uL (150-450) 06/16/18 05:53 MPV 8.0 fL (7.4-10.4) 06/16/18 05:53 Sodium 139 mmol/L (135-145) 06/13/18 05:26 Potassium 4.5 mmol/L (3.5-5.0) 06/13/18 05:26 Chloride 108 mmol/L (101-111) 06/13/18 05:26 Carbon Dioxide 26 mmol/L (22-32) 06/13/18 05:26 Anion Gap 5 mmol/L (2-11) 06/13/18 05:26 BUN 25 mg/dL (6-24) H 06/13/18 05:26 Creatinine 1.24 mg/dL (0.51-0.95) H 06/13/18 05:26 Est GFR ( Amer) 51.2 (>60) 06/13/18 05:26 Est GFR (Non-Af Amer) 42.3 (>60) 06/13/18 05:26 BUN/Creatinine Ratio 20.2 (8-20) H 06/13/18 05:26 Glucose 167 mg/dL (70-100) H 06/13/18 05:26 POC Glucose (mg/dL) 152 mg/dL (70-100) H 06/12/18 06:27 Calcium 8.4 mg/dL (8.6-10.3) L 06/13/18 05:26 incision: c/d/i PE: NVI Assessment: s/p left shoulder reverse Plan: 1) will change dressing tomorrow before D/C to rehab 2) Lovenox for DVT prophyalxis 3) PT/OT- NWB LUE, FF/Abd <= 90, ER <= 25 [facility]
[2018-06-16] MEDS: Atorvastatin* 10 MG TAB PO SCH (09:06)
[2018-06-16] MEDS: Hydrochlorothiazide TAB* 25 MG PO SCH (09:07)
[2018-06-16] MEDS: Citalopram TAB* 10 MG PO SCH (09:07)
[2018-06-16] MEDS: Docusate CAP* 100 MG PO SCH ×2 (09:07→22:19)
[2018-06-16] MEDS: Ibuprofen TAB* 600 MG PO PRN ×2 (09:07→19:25)
[2018-06-16] MEDS: Lisinopril TAB* 10 MG PO SCH (09:07)
[2018-06-16] MEDS: Pantoprazole TAB * 40 MG TAB PO SCH (09:07)
[2018-06-16] MEDS: Enoxaparin(*) 40 MG/0.4 ML SYR SUBCUT SCH (12:38)
[2018-06-16] MEDS: Amitriptyline TAB* 25 MG PO SCH (22:19)
[2018-06-17] MEDS: Acetaminophen TAB* 325 MG PO SCH ×2 (03:58→10:33)
[2018-06-17 05:24] LABS: Hematocrit 28 % (33-41); Hemoglobin 9.1 g/dL (12.0-16.0); Mean Platelet Volume 7.6 fL (7.4-10.4); Platelet Count 281 10^3/uL (150-450)
[2018-06-17] MEDS: Levothyroxine TAB* 75 MCG TAB PO SCH (06:41)
[2018-06-17 07:49] VITALS: BP 142/60
[2018-06-17] MEDS: Lisinopril TAB* 10 MG PO SCH (08:41)
[2018-06-17] MEDS: Citalopram TAB* 10 MG PO SCH (08:41)
[2018-06-17] MEDS: Hydrochlorothiazide TAB* 25 MG PO SCH (08:41)
[2018-06-17] MEDS: Docusate CAP* 100 MG PO SCH (08:41)
[2018-06-17] MEDS: Pantoprazole TAB * 40 MG TAB PO SCH (08:42)
[2018-06-17] MEDS: Atorvastatin* 10 MG TAB PO SCH (08:42)
--- NOTE | 2018-06-17 10:55 | PN ---
Progress Note - Progress Note Date of Service: 06/17/18 SOAP: Subjective: [] Pt seen at bedside. She feels well. Denies CP, SOB, dizziness, nausea Objective: []General: NAD LUE: Dressing changed, steri strips intact no discharge or surrounding erythema. Wrist and digit f/e intact, sensation intact to light touch distally, cap refill less than two seconds distally, radial pulse 2+. Assessment: [] s/p left shoulder reverse Plan: 1) PT/OT- NWB LUE, FF/Abd <= 90, ER <= [address] [facility] V[facility] Sign[facility] Temp 98.7 F 06/17/18 07:13 Pulse 73 06/17/18 07:13 Resp 18 06/17/18 10:32 BP 142/60 06/17/18 07:13 Pulse Ox 97 06/17/18 08:00 Intake & Output 06/16/18 06/17/18 06/17/18 18:59 06:59 18:59 Intake Total 600 680 420 Output Total 300 1450 300 Balance 300 -770 120 Intake: Oral 600 680 420 Output: Urine 300 1450 300 Laboratory Last Values Hgb 9.1 g/dL (12.0-16.0) L 06/17/18 05:04 Hct 28 % (33-41) L 06/17/18 05:04 Plt Count 281 10^3/uL (150-450) 06/17/18 05:04 MPV 7.6 fL (7.4-10.4) 06/17/18 05:04 Sodium 139 mmol/L (135-145) 06/13/18 05:26 Potassium 4.5 mmol/L (3.5-5.0) 06/13/18 05:26 Chloride 108 mmol/L (101-111) 06/13/18 05:26 Carbon Dioxide 26 mmol/L (22-32) 06/13/18 05:26 Anion Gap 5 mmol/L (2-11) 06/13/18 05:26 BUN 25 mg/dL (6-24) H 06/13/18 05:26 Creatinine 1.24 mg/dL (0.51-0.95) H 06/13/18 05:26 Est GFR ( Amer) 51.2 (>60) 06/13/18 05:26 Est GFR (Non-Af Amer) 42.3 (>60) 06/13/18 05:26 BUN/Creatinine Ratio 20.2 (8-20) H 06/13/18 05:26 Glucose 167 mg/dL (70-100) H 06/13/18 05:26 POC Glucose (mg/dL) 152 mg/dL (70-100) H 06/12/18 06:27 Calcium 8.4 mg/dL (8.6-10.3) L 06/13/18 05:26
[2018-06-17] MEDS: Enoxaparin(*) 40 MG/0.4 ML SYR SUBCUT SCH (11:25)
== END 2018-06-17 12:10 | DRG 483 ==
LOC: AA 05:30 → INTOOBSV 05:30 → SSU 09:56 → OBSVTOIN 06-13 12:00
PROVIDERS: ADMIT Orthopaedic Surgery; ATTEND Orthopaedic Surgery
PROC: 0RRK00Z Replacement of Left Shoulder Joint with Reverse Ball and Socket Synthetic Substitute, Open Approach (ICD-10-PCS; principal; 2018-06-13)
DX: M19.012 Primary osteoarthritis, left shoulder (principal); F33.1 Major depressive disorder, recurrent, moderate; Z68.41 Body mass index [BMI] 40.0-44.9, adult; Z79.82 Long term (current) use of aspirin; I10 Essential (primary) hypertension; E78.00 Pure hypercholesterolemia, unspecified; E03.9 Hypothyroidism, unspecified; F41.9 Anxiety disorder, unspecified; E11.9 Type 2 diabetes mellitus without complications; E66.9 Obesity, unspecified; N32.81 Overactive bladder; E78.2 Mixed hyperlipidemia; K21.9 Gastro-esophageal reflux disease without esophagitis; M48.061 Spinal stenosis, lumbar region without neurogenic claudication; K57.90 Diverticulosis of intestine, part unspecified, without perforation or abscess without bleeding; Z96.651 Presence of right artificial knee joint; S00.83XA Contusion of other part of head, initial encounter; M75.102 Unspecified rotator cuff tear or rupture of left shoulder, not specified as traumatic; W01.0XXA Fall on same level from slipping, tripping and stumbling without subsequent striking against object, initial encounter; Z90.710 Acquired absence of both cervix and uterus; Z90.49 Acquired absence of other specified parts of digestive tract; Z88.5 Allergy status to narcotic agent; Z88.8 Allergy status to other drugs, medicaments and biological substances; Z82.3 Family history of stroke; Z87.891 Personal history of nicotine dependence; Z72.89 Other problems related to lifestyle; Y92.090 Kitchen in other non-institutional residence as the place of occurrence of the external cause; Z98.42 Cataract extraction status, left eye; Z98.41 Cataract extraction status, right eye; Z86.73 Personal history of transient ischemic attack (TIA), and cerebral infarction without residual deficits; Z98.1 Arthrodesis status; Z83.3 Family history of diabetes mellitus; Z82.49 Family history of ischemic heart disease and other diseases of the circulatory system; Z81.1 Family history of alcohol abuse and dependence; Z82.61 Family history of arthritis
CPT/HCPCS: 36415; 80048; 85014; 85018; 85049; 88304; 88311; A9270-GY; C1713; C1776; G8978-GP-CK; G8979-GP-CI; G8987-GO-CK; G8988-GO-CI; J0330; J0690; J1100; J1170; J1240; J1650; J1885; J2250; J2405; J2704; J2795; J3010